=== PATIENT | male | born 1965 | race Caucasian/White ===

== ENCOUNTER 2016-11-26 19:34 | Emergency (ER) | payer MEDICAID, OTHER ==
[~2016-11-26] VITALS: Ht 175.3 cm; Wt 95.0 kg
[~2016-11-26 19:34] MED LIST: AMLO5 PO; GLUCTAB PO; HYDR-3535 PO; HYDR10SO PO; LISI10 PO; NOVO7030P2 SQ; WALKER STANDARD; Z.0.WHEELELR
[2016-11-26 19:38] VITALS: BP 163/85; PULSE 89; RESP 16; TEMP 98.9; O2SAT 99
--- NOTE | 2016-11-26 19:50 | PD ---
Physical Exam Time Seen by Provider: 19:46 Narrative 51yo M c/o left lateral chest pain w/ SOB since yesterday evening. Denies injury, fall. Had surgical removal of skin CA of R arm 2.5 weeks ago. Denies hemoptysis. Denies upper respiratory symptoms. Adina fever. Denies hx of DVT /PE. Denies anticoagulants. Patient stable. Patient seen in triage. Awaiting bed placement. Data Data Last Documented VS Vital Signs Date Time Temp Pulse Resp B/P Pulse Ox O2 Delivery O2 Flow Rate FiO2 11/26/16 19:38 98.9 89 16 163/85 99 Room Air MDM Supervised Visit with HAJA: Megan Ball Nov 26, 2016 19:50
== END 2016-11-26 21:09 | disposition left against medical advice (07) ==
LOC: NED 19:34
DX: R07.89 Other chest pain (principal); R06.02 Shortness of breath; Z98.890 Other specified postprocedural states; Z85.828 Personal history of other malignant neoplasm of skin
CPT/HCPCS: 99281

== ENCOUNTER 2017-10-21 22:16 | Emergency (ER) | payer MEDICAID ==
[~2017-10-21] VITALS: Ht 175.3 cm; Wt 101.6 kg
[2017-10-21 22:26] VITALS: BP 120/66; PULSE 103; RESP 18; TEMP 99.3; O2SAT 99
[2017-10-21] MEDS ORDERED: VENL75TA PO (22:53)
[2017-10-21] MEDS ORDERED: LISI10TA3 PO (22:53)
[2017-10-21] MEDS ORDERED: GABA300C5 PO (22:53)
[2017-10-21] MEDS ORDERED: GEMF600T PO (22:53)
[2017-10-21] MEDS ORDERED: TAMS0.4C4 PO (22:53)
[2017-10-21] MEDS ORDERED: METF1000 PO (22:53)
[2017-10-21] MEDS ORDERED: MELO15TA20 PO (22:53)
--- NOTE | 2017-10-21 23:25 | PD ---
HPI Chief Complaint: Skin Problem Time Seen by Provider: 23:18 Travel History International Travel<30 days: No Contact w/Intl Traveler<30days: No Traveled to known affect area: No History of Present Illness HPI 52-year-old male presents to the emergency department for complaint of burn to his left great toe and fifth toe. Patient states approximately 5 days ago hot coffee spilled on the dorsal aspect of his left foot. Patient removed the socket was on his foot and he noted some redness. Patient is hesitant to keep site clean does not recall a specific blister formation but in the last 3 days has developed a scab on the dorsal aspect of his left great toe and left fifth toe. Patient is diabetic and does have peripheral neuropathy. Patient states his tetanus status is current within the past 2 years. Patient has had a left BKA and was concerned because of the scab so decided to come to the emergency department to be evaluated for his left foot injury. Patient states his blood sugars have been less than 200. Patient does not report significant discomfort as he again has diabetic neuropathy. Patient has had no drainage from the burn sites. Patient decided to come to the emergency room at this time to be evaluated. Patient presently does not have a concierge. Patient has been applying topical antibiotic ointment. PFSH Past Medical History Narrative Medical Diabetes melanoma hypertension hepatitis diabetic neuropathy BKA no tobacco; nursing notes reviewed Anxiety: No Depression: No Cancer: Yes (melanoma on head removed) Cardiovascular Problems: No Chemotherapy: No Cerebrovascular Accident: No Diabetes: Yes Patient Takes Glucophage: Yes Diminished Hearing: No Endocrine: Yes (diabetes) Gastrointestinal Disorders: Yes GERD: No Glaucoma: No Genitourinary: No Hepatitis: Yes (hx ) Hiatal Hernia: No Hypertension: Yes Immune Disorder: No Medical other: Yes (DIABETIC NEUROPATHY BILATAL FEET AND LOWER LEGS) Musculoskeletal: No Neurologic: Yes Psychiatric: No Reproductive: Yes (RELATED TO DIABETES) Respiratory: No Migraines: No Pneumonia: Yes Radiation Therapy: No Seizures: No Sickle Cell Disease: No Thyroid Disease: No Ulcer: No Tetanus Vaccination: < 5 Years Influenza Vaccination: No PNEUMOCCOCAL Vaccine (Year): 2 Past Surgical History Abdominal Surgery: No AICD: No Arteriovenous Shunt: No Cardiac Surgery: No Ear Surgery: No Endocrine Surgery: No Eye Surgery: No Genitourinary Surgery: No Gynecologic Surgery: No Insulin Pump: No Joint Replacement: Yes Oral Surgery: No Pacemaker: No Thoracic Surgery: No Other Surgery: Yes (knee surgeries both knee and head surgery melanoma removal) Social History Alcohol Use: No Tobacco Use: No (quit in 2007, OCC CIGAR) Substance Use: No Allergies-Medications (Allergen,Severity, Reaction): Coded Allergies: bee venom protein (honey bee) (Unverified Allergy, Severe, ANAPHALAXIS, ) *MDRO Multi-Drug Resistant Organism (Verified Adverse Reaction, Unknown, ) 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 Reported Meds & Prescriptions Reported Meds & Active Scripts Active Lortab 10 mg/325 mg (Hydrocodone/Acetaminophen 10 mg/325 mg) 1 Tab 1 Tab PO Q4H PRN Prinivil 10 mg (Lisinopril) 10 Mg Tab 10 Mg PO DAILY 30 Days Norvasc (Amlodipine Besylate) 5 Mg Tab 5 Mg PO DAILY 30 Days Wheelchair Elevated Leg Rest (Z.0.wheelelr) Device 1 Unit Walker Standard (Device) Device 1 Ea Hydrocodone/Acetaminophen (Miscellaneous Medication) 1 Tab 1 Tab PO Q4H PRN Novolin 70/30 (Insulin Human Isoph/Insulin Regular) 100 Units/Ml Inj 22 Units SQ DAILYAC 30 Days Reported Lisinopril 10 Mg Tab 10 Mg PO DAILY Gabapentin 300 Mg Cap 300 Mg PO TID Meloxicam 15 Mg Tab 15 Mg PO DAILY Effexor (Venlafaxine HCl) 75 Mg Tab 75 Mg PO DAILY Tamsulosin (Tamsulosin HCl) 0.4 Mg Cap 0.4 Mg PO HS Gemfibrozil 600 Mg Tab 600 Mg PO BIDAC Take 30 minutes prior to breakfast and dinner. Metformin (Metformin HCl) 1,000 Mg Tab 1,000 Mg PO BIDPC Glucophage XR 24 HR (Metformin HCl) 500 Mg Tab 1,000 Mg PO BID Review of Systems Except as stated in HPI: all other systems reviewed are Neg General / Constitutional: No: Fever, Chills HENT: No: Congestion Cardiovascular: No: Chest Pain or Discomfort Respiratory: No: Shortness of Breath Gastrointestinal: No: Vomiting, Abdominal Pain Genitourinary: No: Flank Pain Musculoskeletal: No: Myalgias, Arthralgias Skin: Positive Other (Redness of the left great toe status post burn) Neurologic: No: Weakness Hematologic/Lymphatic: No: Lymph Node Enlargement Physical Exam Narrative GENERAL: Well-developed well-nourished male no acute distress no respiratory distress SKIN: Warm and dry. HEAD: Normocephalic. EYES: No scleral icterus. No injection or drainage. NECK: Supple, trachea midline. No JVD or lymphadenopathy. CARDIOVASCULAR: Regular rate and rhythm without murmurs, gallops, or rubs. RESPIRATORY: Breath sounds equal bilaterally. No accessory muscle use. GASTROINTESTINAL: Abdomen soft, non-tender, nondistended. MUSCULOSKELETAL: No cyanosis, or edema. Attention left lower extremity left foot shows evidence of erythema of the left great toe with 2.5 x 2.[address] without necrotic tissue or purulent drainage capillary refill brisk and less than 2 seconds dorsalis pedis pulse 2+ to palpation also similar smaller wound to the left fifth toe. BACK: Nontender without obvious deformity. No CVA tenderness. Data Data Last Documented VS Vital Signs Date Time Temp Pulse Resp B/P (MAP) Pulse Ox O2 Delivery O2 Flow Rate FiO2 10/21/17 23:58 98.7 91 18 97 Room Air Orders Orders Foot, Complete (Wtw1pet) (10/21/17 ) Sulfamet-Trimeth Ds 800-160 Mg (Bactrim (10/21/17 23:30) Cephalexin (Keflex) (10/21/17 23:30) Wound Care (10/21/17 23:25) Blood Glucose (10/21/17 23:25) MDM Medical Decision Making Medical Screen Exam Complete: Yes Emergency Medical Condition: Yes Medical Record Reviewed: Yes Interpretation(s) random glucose: 127 Last Impressions Foot X-Ray 10/21/17 0000 Signed Impressions: Service Date/Time: Saturday, October 21, 2017 23:33 - CONCLUSION: No evidence of recent bony injury. Advanced Charcot arthropathy of the midfoot, unchanged from 2015. Sanju Castellanos MD Vital Signs Date Time Temp Pulse Resp B/P (MAP) Pulse Ox O2 Delivery O2 Flow Rate FiO2 10/21/17 23:58 98.7 91 18 97 Room Air 10/21/17 22:26 99.3 103 18 120/66 (84) 99 Differential Diagnosis Partial thickness burn, cellulitis, wound infection, diabetes Narrative Course Patient with diabetes peripheral neuropathy and partially healed partial thickness burn of the left great toe and left fifth toe. Tetanus status current. Random glucose Imaging study shows no acute bony abnormality; random glucose 127; patient is stable for outpatient management and close follow-up with the concierge has been provided with on-call concierge information. Diagnosis Primary Impression: Cellulitis of left toe Additional Impressions: Partial thickness burn of foot Qualified Codes: T25.222A - Burn of second degree of left foot, initial encounter Partial thickness burn of great toe Qualified Codes: T25.232A - Burn of second degree of left toe(s) (nail), initial encounter Partial thickness burn of fourth toe Qualified Codes: T25.232A - Burn of second degree of left toe(s) (nail), initial encounter Referrals: [facility] 1 day [facility] concierge: Dr Andres Patient Instructions: General Instructions Additional Instructions: Follow-up with concierge call office in a.m. to schedule follow-up appointment Complete course of antibiotic as prescribed Monitor blood sugars daily Follow diabetic diet closely Apply topical antibiotic ointment to burn site Return to the emergency department for pain fever redness swelling or any concerns Med/Other Pt SpecificInfo: Prescription(s) given Scripts Mupirocin Topical (Bactroban Topical) 22 Gm Cream 1 APPLIC TOPICAL BID for Mgmt Bacterial Infection for 7 Days, #1 TUBE 0 Refills Prov: Hansa Mejias MD 10/22/17 Cephalexin (Keflex) 500 Mg Capsule 500 MG PO Q6H for Infection for 7 Days, #28 CAP 0 Refills Prov: Hansa Mejias MD 10/22/17 Doxycycline Hyclate (Doxycycline Hyclate) 100 Mg Cap 100 MG PO BID for Infection, #20 CAP 0 Refills Prov: Hansa Mejias MD 10/22/17 Disposition: 01 DISCHARGE HOME Condition: Stable Hansa Mejias MD Oct 21, 2017 23:25
[2017-10-21] MEDS ORDERED: CEPHALEXIN MONOHYDRATE 500 MG CAP PO ONE (23:30)
[2017-10-21] MEDS ORDERED: SULFAMETHOXAZOLE-TRIMETHOPRIM DS 800-160 MG TAB PO ONE (23:30)
--- NOTE | 2017-10-21 23:53 | RADRPT ---
EXAM DATE/TIME: 10/21/2017 23:33 [facility] COMPARISON: FOOT LEFT COMPLETE (KEY4ITE), December 04, 2014, 3:30. INDICATIONS : Left dorsal foot pain after dropping a full coffee pot on his foot. Brooks to 1st and 5th toes. MEDICAL HISTORY : Diabetes mellitus type I. Diabetic neuropathy. SURGICAL HISTORY : None. ENCOUNTER: Initial ACUITY: 4 - 6 days PAIN SCORE: 4/10 LOCATION: Left foot FINDINGS: Three-view examination demonstrates marked deformity of the osseous structures of the midfoot charact eristic of Charcot arthropathy. There is fusion, hypertrophy, increased density which is unchanged i n appearance from prior conventional radiograph in December 2014. The osseous structures of the forefoot are intact with flexion of the 2nd through 5th digits, similar to prior. No evidence of acute bony i njury or radiopaque foreign body. CONCLUSION: No evidence of recent bony injury. Advanced Charcot arthropathy of the midfoot, unchanged from 2014. Sanju Castellanos MD on October 21, 2017 at 23:49 Board Certified Radiologist. This report was verified electronically.
[2017-10-21 23:58] VITALS: PULSE 91; RESP 18; TEMP 98.7; O2SAT 97
[2017-10-22] MEDS ORDERED: CEPH-460 PO (00:18)
[2017-10-22] MEDS ORDERED: DOXY100C PO (00:18)
[2017-10-22] MEDS ORDERED: MUPI2%T TOPICAL (00:18)
== END 2017-10-22 00:30 | disposition home or self-care (01) ==
LOC: PHED 22:16
DX: L03.032 Cellulitis of left toe (principal); T25.222A Burn of second degree of left foot, initial encounter; T25.232A Burn of second degree of left toe(s) (nail), initial encounter; E11.42 Type 2 diabetes mellitus with diabetic polyneuropathy; I10 Essential (primary) hypertension; X10.0XXA Contact with hot drinks, initial encounter; Z79.4 Long term (current) use of insulin; Z87.891 Personal history of nicotine dependence
CPT/HCPCS: 73630; 99283